=== PATIENT | male | born 1965 | race Caucasian/White ===

== ENCOUNTER 2016-09-17 09:36 | Emergency (ER) | payer OTHER ==
[~2016-09-17] VITALS: Ht 175.3 cm; Wt 77.1 kg
--- NOTE | 2016-09-17 10:01 | ED GI/GU/ABDOMINAL COMPLAINT ---
History of Present Illness General Chief Complaint: Abdominal Pain/Flank Pain Stated Complaint: ABD PAIN Source: patient, old records Exam Limitations: no limitations Vital Signs & Intake/Output Vital Signs & Intake/Output Vital Signs Date Time Temp Pulse Resp B/P Pulse O2 O2 Flow FiO2 Ox Delivery Rate 09/17 1139 99.0 74 20 123/76 100 Room Air 09/17 1101 96.7 09/17 1038 99.0 70 18 130/66 98 Room Air 09/17 1029 98 09/17 0939 97.2 61 14 125/81 97 Room Air ED Intake and Output 09/18 0000 09/17 1200 Intake Total 1000 1000 Output Total Balance 1000 1000 Intake, IV 1000 1000 Intake, Oral 0 Patient 170 lb Weight Allergies Coded Allergies: NO KNOWN ALLERGIES (03/13/13) Reconcile Medications Celecoxib 200 MG CAPSULE 1 CAP PO DAILY HIP PAIN (Reported) Ciprofloxacin HCl (Cipro) 500 MG TABLET 1 TAB PO BID infection Dicyclomine Hydrochloride (Bentyl) 10 MG CAPSULE 1 CAP PO TID PRN abdominal pain Metronidazole 500 MG TABLET 1 TAB PO TID abdominal infection Ondansetron (Zofran Odt) 4 MG TAB.RAPDIS 1 TAB SL TID PRN nausea Triage Note: 51 Y/O MALE C/O WORSENING ABDOMINAL PAIN; STARTS AROUND UMBILICUS RADIATING INTO LLQ. STATES PAIN HAS BEEN PRESENT FOR A FEW WEEKS BUT BECAME WORSE AFTER VOMITING YESTERDAY. +N/V/D THROUGHOUT THE NIGHT PER PT. STATES HX DIVERTICULITIS AND HERNIA REPAIR AND THIS FEELS MORE LIKE DIVERTICULITIS PER PT. +DIFFICULTY URINATING. AFEBRILE. TEARFUL IN TRIAGE, APPEARS UNCOMFORTABLE. STATES HE FEELS A "BUMP" IN ABDOMEN WHEN HE COUGHS. Triage Nurses Notes Reviewed? yes HPI: Patient is a 51-year-old male presents complaining of diffuse abdominal pain, vomiting, diarrhea. Abdominal pain began approximately 10 days to 2 weeks ago, is a sharp pain currently moderate, at times severe. Pain has worsened over the past 24 hours. The past 24 hours one episode of vomiting, 5-6 episodes of diarrhea. Patient reports that the pain feels mildly similar to his previous diverticulitis, but the diverticulitis was in the left lower quadrant and felt lower than his current pain. Denies current fevers, melena, hematochezia (JAREK IVY,HUSSEIN) Past History Travel History Traveled to [place] past 21 day No Medical History Any Pertinent Medical History? 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 No (HUSSEIN JEREZ) Review of Systems Review of Systems Constitutional: Denies: chills, fever. EENTM: Reports: no symptoms. Respiratory: Denies: cough, short of breath. Cardiovascular: Denies: chest pain. GI: Reports: see HPI. Genitourinary: Denies: hematuria. Musculoskeletal: Reports: no symptoms. Skin: Reports: no symptoms. Neurological/Psychological: Reports: no symptoms. Hematologic/Endocrine: Reports: no symptoms. Immunologic/Allergic: Reports: no symptoms. (HUSSEIN JEREZ) Physical Exam Physical Exam General Appearance: well developed/nourished, alert, awake Head: atraumatic, normal appearance Eyes: Bilateral: normal appearance. Ears, Nose, Throat, Mouth: MILDLY DRY MUCOUS MEMBRANES Neck: normal inspection, supple, full range of motion Respiratory: normal breath sounds, chest non-tender, no respiratory distress, lungs clear Cardiovascular: regular rate/rhythm Gastrointestinal: normal bowel sounds, soft, RIGHT UPPER QUADRANT TENDERNESS. nEGATIVE mCbURNEY'S POINT TENDERNESS, NEGATIVE LEFT LOWER QUADRANT TENDERNESS Back: normal inspection, normal range of motion Extremities: normal range of motion Neurologic/Psych: no motor/sensory deficits, awake, alert, oriented x 3, normal gait, normal mood/affect Skin: intact, normal color, warm/dry Core Measures ACS in differential dx? No Severe Sepsis Present: No Septic Shock Present: No (HUSSEIN JEREZ) Progress Differential Diagnosis: biliary colic, cholecystitis, diverticulitis, gastritis, hepatitis, hernia, ischemic bowel, inflamm bowel dis, pancreatitis, perforated viscous, pyelonephritis, ureterolithiasis Plan of Care: Orders Procedure Date/time Status LIPASE 09/17 1028 Complete LACTIC ACID 09/17 1028 Complete COMPREHENSIVE METABOLIC PANEL 09/17 1028 Complete CBC WITHOUT DIFFERENTIAL 09/17 1028 Complete AMYLASE 09/17 1028 Complete Laboratory Tests 09/17/16 1328: Lactic Acid Cancelled 09/17/16 1028: Urine Color Cancelled, Urine Clarity Cancelled, Urine pH Cancelled, Ur Specific [place] Cancelled, Urine Protein Cancelled, Urine Ketones Cancelled, Urine Nitrite Cancelled, Urine Bilirubin Cancelled, Urine Urobilinogen Cancelled, Ur Leukocyte Esterase Cancelled, Ur Microscopic Cancelled, Urine Hemoglobin Cancelled, Urine Glucose Cancelled 09/17/16 1020: Anion Gap 12, Estimated GFR > 60, BUN/Creatinine Ratio 18.8, Glucose 99, Lactic Acid 1.0, Calcium 9.4, Total Bilirubin 0.9, AST 27, ALT 53, Alkaline Phosphatase 70, Total Protein 6.6, Albumin 4.1, Globulin 2.5, Albumin/Globulin Ratio 1.6, Amylase 66, Lipase 97, CBC w Diff NO MAN DIFF REQ, RBC 4.70, MCV 88.6, MCH 31.0, RDW 13.8, MPV 7.4, Gran % 83.2 H, Lymphocytes % 7.3 L, Monocytes % 8.3, Eosinophils % 0.9, Basophils % 0.3, Absolute Granulocytes 6.8 H, Absolute Lymphocytes 0.6 L, Absolute Monocytes 0.7 H, Absolute Eosinophils 0.1, Absolute Basophils 0, PUBS MCHC 34.9 09/17/2016 11:34:06 AM: Results of x-ray and labs discussed with patient. Patient's abdomen reevaluated. Minimal left lower quadrant tenderness. Moderate right upper quadrant tenderness. [facility] currently on CT scan diversion. Patient with no peritoneal signs on exam, afebrile, white blood cell count and lactic acid normal. Will start on empiric antibiotic therapy. Transfer for CT scan deferred. Discussed with patient that if symptoms are worsening or he develops fever that he needs to return and most likely a CT scan would be obtained at that time. Discussed with Dr. Houston. (JAREK IVY,HUSSEIN) Diagnostic Imaging: Viewed by Me: Radiology Read, Ultrasound. Discussed w/RAD: Radiology Read, Ultrasound. Radiology Impression: PATIENT: RICO WOLFE PRESENT AGE: 51 PATIENT ACCOUNT NO: [id number] : 65 LOCATION: [facility] ORDERING PHYSICIAN: HUSSEIN IVY SERVICE DATE: 09/17/16 EXAM TYPE: RAD - [id number] VIEWS EXAMINATION: XR ABDOMEN MULTIPLE VIEWS CLINICAL INDICATION: Abdominal pain COMPARISON: CT 03/13/2013 TECHNIQUE: 2 views, 4 images of the abdomen FINDINGS: Normal bowel gas pattern without dilated loops of bowel. Minimal air-fluid levels are seen on the upright view involving nondilated loops of small bowel. No free air. The lung bases are clear. No acute osseous abnormality. IMPRESSION: Nonobstructive bowel gas pattern. Minimal air- fluid levels are noted which are nonspecific. Enteritis is a consideration. DICTATED BY: MODESTA COLE MD DATE/TIME DICTATED:09/17/161105 LIB[employer]IAN SPECIAL COLLECTIONS:AUGIE DATE/TIME TRANSCRIBED:09/17/161105 CONFIDENTIAL, DO NOT COPY WITHOUT APPROPRIATE AUTHORIZATION. <Electronically signed in Other Vendor System> SIGNED BY: MODESTA COLE MD 09/17/16 1110, PATIENT: RICO WOLFE PRESENT AGE: 51 PATIENT ACCOUNT NO: [id number] : 65 LOCATION: [facility] ORDERING PHYSICIAN: HUSSEIN IVY SERVICE DATE: 09/17/16 EXAM TYPE: US - US-LIMITED ABDOMEN EXAMINATION: US ABDOMEN LIMITED CLINICAL INFORMATION: Abdominal pain and vomiting. Right upper quadrant tenderness.. COMPARISON: CT from 03/13/2013. TECHNIQUE: Real-time imaging of the right upper quadrant abdominal viscera. FINDINGS: PANCREAS: The pancreatic head and body are unremarkable. The tail is partially obscured by gas. LIVER: There is diffuse increased liver parenchymal echogenicity, consistent with hepatic steatosis. The liver is normal in size and contour. No biliary ductal dilatation. GALLBLADDER: Normal. The gallbladder is physiologically distended without evidence of stones, sludge, polyps, wall thickening or pericholecystic fluid. COMMON BILE DUCT: Normal in caliber measuring 0.4 cm in diameter. RIGHT KIDNEY: Normal. No hydronephrosis. No renal calculi or focal parenchymal lesions. The kidney measures 9.4 cm in maximum dimension. FREE FLUID: None. IMPRESSION: Hepatic steatosis. Otherwise unremarkable study. DICTATED BY: MODESTA COLE MD DATE/TIME DICTATED:1127 LIB[employer]IAN SPECIAL COLLECTIONS:AUGIE DATE/TIME TRANSCRIBED:04/17/17 / 1128 CONFIDENTIAL, DO NOT COPY WITHOUT APPROPRIATE AUTHORIZATION. <Electronically signed in Other Vendor System> SIGNED BY: KELSEY LANDRUM,MODESTA 09/17/16 1132 Initial ED EKG: none (HUSSEIN JEREZ) Departure Departure Time of Disposition: 1211 Disposition: HOME OR SELF CARE Condition: Stable Clinical Impression Primary Impression: Abdominal pain Qualifiers: Abdominal location: unspecified location Qualified Code: R10.9 - Unspecified abdominal pain Referrals: JERICHO LANDRUM,HENRIK Gan (PCP/Family) Additional Instructions: Follow up with her primary doctor this week for further evaluation. Call today for appointment. Return to the emergency department if you develop a temperature of 100.4 or greater, unable to stay hydrated, pain increasing, or worsening of symptoms. Departure Forms: Customer Survey General Discharge Information Prescriptions: Current Visit Scripts Ciprofloxacin HCl (Cipro) 1 TAB PO BID #20 TAB Metronidazole 1 TAB PO TID #30 TAB Dicyclomine Hydrochloride (Bentyl) 1 CAP PO TID PRN abdominal pain #10 CAP Ondansetron (Zofran Odt) 1 TAB SL TID PRN nausea #10 TAB (HUSSEIN JEREZ) PA/LOAN SERVICE OFFICER Co-Sign Statement Statement: ED Attending supervision documentation- [] I saw and evaluated the patient. I have also reviewed all the pertinent lab results and diagnostic results. I agree with the findings and the plan of care as documented in the PA's/LOAN SERVICE OFFICER's documentation. [X] I have reviewed the ED Record and agree with the PA's/LOAN SERVICE OFFICER's documentation. [] Additions or exceptions (if any) to the PAs/LOAN SERVICE OFFICER's note and plan are summarized below: [] (KUMAR LANDRUM,SY)
[2016-09-17] MEDS ORDERED: CELECOXIB200 M1 PO (10:08)
[2016-09-17 11:00] LABS: ABSOLUTE BASOPHIL COUNT 0 /CUMM (0.0-0.2); ABSOLUTE EOSINOPHIL COUNT 0.1 /CUMM (0.0-0.7); ABSOLUTE GRANULOCYTE CT 6.8 /CUMM (1.4-6.5); ABSOLUTE LYMPH COUNT 0.6 /CUMM (1.2-3.4); ABSOLUTE MONOCYTE COUNT 0.7 /CUMM (0.10-0.60); BASOPHIL % 0.3 % (0.0-2.0); EOSINOPHIL % 0.9 % (0-5); GRANULOCYTE % 83.2 % (42.2-75.2); HEMATOCRIT 41.7 % (42-52); MEAN CORPUSCULAR HGB CONC 34.9 G/DL (33.0-37.0); MEAN CORPUSCULAR VOLUME 88.6 FL (80.0-94.0); MEAN PLATELET VOLUME 7.4 FL (7.4-10.4); PLATELET COUNT 276 /CUMM (130-400); RBC DISTRIBUTION WIDTH 13.8 % (11.5-14.5); WHITE BLOOD CELL COUNT 8.2 /CUMM (4.8-10.8)
--- NOTE | 2016-09-17 11:10 | RADIOLOGY REPORT ---
EXAMINATION: XR ABDOMEN MULTIPLE VIEWS CLINICAL INDICATION: Abdominal pain COMPARISON: CT 03/13/2013 TECHNIQUE: 2 views, 4 images of the abdomen FINDINGS: Normal bowel gas pattern without dilated loops of bowel. Minimal air-fluid levels are seen on the upright view involving nondilated loops of small bowel. No free air. The lung bases are clear. No acute osseous abnormality. IMPRESSION: Nonobstructive bowel gas pattern. Minimal air-fluid levels are noted which are nonspecific. Enteritis is a consideration.
--- NOTE | 2016-09-17 11:32 | ULTRASOUND REPORT ---
EXAMINATION: US ABDOMEN LIMITED CLINICAL INFORMATION: Abdominal pain and vomiting. Right upper quadrant tenderness.. COMPARISON: CT from 03/13/2013. TECHNIQUE: Real-time imaging of the right upper quadrant abdominal viscera. FINDINGS: PANCREAS: The pancreatic head and body are unremarkable. The tail is partially obscured by gas. LIVER: There is diffuse increased liver parenchymal echogenicity, consistent with hepatic steatosis. The liver is normal in size and contour. No biliary ductal dilatation. GALLBLADDER: Normal. The gallbladder is physiologically distended without evidence of stones, sludge, polyps, wall thickening or pericholecystic fluid. COMMON BILE DUCT: Normal in caliber measuring 0.4 cm in diameter. RIGHT KIDNEY: Normal. No hydronephrosis. No renal calculi or focal parenchymal lesions. The kidney measures 9.4 cm in maximum dimension. FREE FLUID: None. IMPRESSION: Hepatic steatosis. Otherwise unremarkable study.
[2016-09-17 11:39] VITALS: BP 123/76
[2016-09-17] MEDS ORDERED: METRONIDAZOLE500 M1 PO (12:13)
[2016-09-17] MEDS ORDERED: BENTYL10 M1 PO (12:13)
[2016-09-17] MEDS ORDERED: CIPRO500 M1 PO (12:13)
[2016-09-17] MEDS ORDERED: ZOFRAN ODT4 M1 SL (12:13)
== END 2016-09-17 12:18 ==
LOC: ERH 09:36
PROVIDERS: Physician Assistant
DX: R10.11 Right upper quadrant pain (principal)
CPT/HCPCS: 74020; 96361; 96374; J2405